=== PATIENT | male | born 1945 | race Caucasian/White ===

== ENCOUNTER 2017-12-23 09:40 | Inpatient (IN) | payer MEDICARE, OTHER ==
[~2017-12-23] VITALS: Ht 177.8 cm; Wt 101.4 kg
[~2017-12-23 09:40] MED LIST: ASPI-611 PO; ATOR40TA71 PO; BACL10TA PO; CADE40GE2 TP; CARB15DR95 OP; FERGLU300T PO; FLO0.4C PO; LISI10TA4 PO; METO25TA6 PO; MINE120C3 TP; NITR0.4T48 SL
[2017-12-23] MEDS ORDERED: normal saline 1000ml 1,000 ML IV ONE (10:05)
[2017-12-23 10:18] LABS: BASOPHILS % (AUTO) 0.1 % (0-1); EOSINOPHILS # (AUTO) 0.2 X10'3 (0-0.9); EOSINOPHILS % (AUTO) 1.6 % (0-6); HEMATOCRIT 34.1 % (42.0-52.0); HEMOGLOBIN 11.8 g/dl (14.0-17.9); LYMPHOCYTES # (AUTO) 1.1 X10'3 (1.1-4.8); LYMPHOCYTES % (AUTO) 9.6 % (21-51); MEAN CORPUSCULAR HEMOGLOBIN 29.1 PG (27.0-31.0); MEAN CORPUSCULAR HGB CONC 34.5 % (33.0-36.5); MEAN CORPUSCULAR VOLUME 84.5 FL (78-98); MEAN PLATELET VOLUME 9.1 FL (7.4-10.4); MONOCYTES # (AUTO) 0.9 X10'3 (0-0.9); MONOCYTES % (AUTO) 8.1 % (2-12); NEUTROPHILS # (AUTO) 9.1 X10'3 (1.8-7.7); NEUTROPHILS % (AUTO) 80.6 % (42-75); PLATELET COUNT 229 X10'3 (140-440); RED BLOOD COUNT 4.04 X10'6 (4.70-6.10); RED CELL DISTRIBUTION WIDTH 16.1 % (11.5-14.5); WHITE BLOOD COUNT 11.3 X10'3 (4.5-11.0)
[2017-12-23 10:29] LABS: INR 1.1 INR; PARTIAL THROMBOPLASTIN TIME 29 SECONDS (22-32); PROTHROMBIN TIME 10.9 SECONDS (9.0-12.0)
[2017-12-23 10:34] LABS: ALANINE AMINOTRANSFERASE 318 U/L (12-78); ALBUMIN 1.9 G/DL (3.4-5.0); ALKALINE PHOSPHATASE 845 IU/L (46-116); ANION GAP 12 (8-16); ASPARTATE AMINO TRANSFERASE 630 U/L (10-37); BILIRUBIN,TOTAL 6.2 MG/DL (0.1-1.0); BLOOD UREA NITROGEN 55 MG/DL (7-18); BUN/CREATININE RATIO 10.8 (5.4-32.0); CALCIUM 8.7 MG/DL (8.5-10.1); CHLORIDE 101 MMOL/L (99-107); CREATININE 5.07 MG/DL (0.60-1.10); GLUCOSE 144 MG/DL (70-104); SODIUM 143 MMOL/L (135-145); TOTAL CARBON DIOXIDE 30.5 MMOL/L (24-32); eGFR 11 ML/MIN
[2017-12-23 10:45] LABS: ALBUMIN/GLOBULIN RATIO 0.3 (1.1-1.5); POTASSIUM 4.6 MMOL/L (3.5-5.1); TOTAL PROTEIN 7.4 G/DL (6.4-8.2)
[2017-12-23] MEDS ORDERED: POTA20PA40 PO (11:19)
[2017-12-23] MEDS ORDERED: MAGN500C16 PO (11:19)
[2017-12-23] MEDS ORDERED: PANT-47 PO (11:20)
[2017-12-23] MEDS ORDERED: CHLO25TA2 PO (11:21)
[2017-12-23] MEDS ORDERED: MORP-64 PO ×2 (11:22→11:23)
[2017-12-23] MEDS ORDERED: magnesium 4gm in 100ml NS 100 ML IV PRN (11:35)
[2017-12-23] MEDS ORDERED: potassium Cl 40MEQ/NS 500ml 500 ML IV PRN (11:35)
[2017-12-23] MEDS ORDERED: magnesium Cl slow-release 64mg tablet PO PRN (11:35)
[2017-12-23] MEDS ORDERED: potassium Cl 20 mEq SR tablet PO PRN (11:35)
[2017-12-23] MEDS ORDERED: docusate sod 100mg capsule PO PRN (11:35)
[2017-12-23] MEDS ORDERED: ondansetron/PF 4mg/2ml inj IV PRN (11:35)
[2017-12-23] MEDS ORDERED: magnesium 1gm/100ml D5W IVPB 100 ML IV PRN (11:35)
[2017-12-23] MEDS: normal saline 1000ml 1,000 ML IV SCH ×2 (12:12→12:13)
[2017-12-23] MEDS ORDERED: CefTRIAXone/D5W-Rocephin 1gm 50 ML IV SCH (12:30)
[2017-12-23 14:00] VITALS: BP 130/54
[2017-12-23 20:00] VITALS: BP_SYST 128; BP_SYST 132; BP_DIAS 58; BP_DIAS 60
[2017-12-23] MEDS: heparin, porcine 5000 units/ml vial SQ SCH (20:57)
[2017-12-23] MEDS ORDERED: temazepam 15mg capsule PO PRN (21:00)
[2017-12-23] MEDS: tamsulosin 0.4mg capsule PO SCH (21:01)
[2017-12-24] VITALS (8 sets, daily range): BP systolic 132–151; BP diastolic 55–88
[2017-12-24] MEDS: normal saline 1000ml 1,000 ML IV SCH ×3 (01:23→20:27)
[2017-12-24 05:18] LABS: BASOPHILS % (AUTO) 0.4 % (0-1); EOSINOPHILS # (AUTO) 0.2 X10'3 (0-0.9); EOSINOPHILS % (AUTO) 2.2 % (0-6); HEMATOCRIT 30.7 % (42.0-52.0); HEMOGLOBIN 10.6 g/dl (14.0-17.9); LYMPHOCYTES # (AUTO) 2.1 X10'3 (1.1-4.8); MEAN CORPUSCULAR HEMOGLOBIN 29.2 PG (27.0-31.0); MEAN CORPUSCULAR HGB CONC 34.8 % (33.0-36.5); MEAN PLATELET VOLUME 9.3 FL (7.4-10.4); MONOCYTES # (AUTO) 0.9 X10'3 (0-0.9); MONOCYTES % (AUTO) 8.4 % (2-12); NEUTROPHILS # (AUTO) 7.7 X10'3 (1.8-7.7); PLATELET COUNT 196 X10'3 (140-440); RED BLOOD COUNT 3.65 X10'6 (4.70-6.10); RED CELL DISTRIBUTION WIDTH 16.3 % (11.5-14.5); WHITE BLOOD COUNT 10.9 X10'3 (4.5-11.0)
[2017-12-24 05:23] LABS: ALANINE AMINOTRANSFERASE 276 U/L (12-78); ALBUMIN 1.6 G/DL (3.4-5.0); ALKALINE PHOSPHATASE 683 IU/L (46-116); ANION GAP 9 (8-16); ASPARTATE AMINO TRANSFERASE 505 U/L (10-37); BILIRUBIN,TOTAL 4.8 MG/DL (0.1-1.0); BLOOD UREA NITROGEN 48 MG/DL (7-18); BUN/CREATININE RATIO 10.5 (5.4-32.0); CALCIUM 7.9 MG/DL (8.5-10.1); CHLORIDE 104 MMOL/L (99-107); CREATININE 4.55 MG/DL (0.60-1.10); GLUCOSE 117 MG/DL (70-104); HDL CHOLESTEROL 15 MG/DL (35-60); LDL CHOLESTEROL 56 MG/DL (50-100); MAGNESIUM 2.3 MG/DL (1.5-2.4); POTASSIUM 3.1 MMOL/L (3.5-5.1); SODIUM 142 MMOL/L (135-145); TOTAL CARBON DIOXIDE 28.8 MMOL/L (24-32); eGFR 13 ML/MIN
[2017-12-24 05:26] LABS: ALBUMIN/GLOBULIN RATIO 0.4 (1.1-1.5); CHOL/HDL RATIO 6.7 (0.00-4.99); CHOLESTEROL 100 MG/DL (0-200); TOTAL PROTEIN 6.1 G/DL (6.4-8.2); TRIGLYCERIDES 71 MG/DL (20-135)
[2017-12-24 07:09] LABS: TROPONIN I 0.09 NG/ML (0.0-0.05)
[2017-12-24] MEDS: aspirin 81mg tablet.DR PO SCH (07:16)
[2017-12-24] MEDS: potassium Cl 20 mEq SR tablet PO PRN ×2 (07:17→13:03)
[2017-12-24] MEDS: heparin, porcine 5000 units/ml vial SQ SCH ×2 (07:18→20:25)
[2017-12-24] MEDS ORDERED: pantoprazole 40mg Tablet.DR PO SCH (08:00)
[2017-12-24] MEDS: K and/or MAG REPLACEMENT MC SCH (08:00)
[2017-12-24 08:01] LABS: INR 1.1 INR; PROTHROMBIN TIME 11.2 SECONDS (9.0-12.0)
[2017-12-24 15:23] LABS: ALANINE AMINOTRANSFERASE 275 U/L (12-78); ALBUMIN 1.6 G/DL (3.4-5.0); ALBUMIN/GLOBULIN RATIO 0.4 (1.1-1.5); ALKALINE PHOSPHATASE 726 IU/L (46-116); ANION GAP 9 (8-16); ASPARTATE AMINO TRANSFERASE 534 U/L (10-37); BLOOD UREA NITROGEN 48 MG/DL (7-18); BUN/CREATININE RATIO 11.1 (5.4-32.0); CHLORIDE 103 MMOL/L (99-107); CREATININE 4.31 MG/DL (0.60-1.10); GLUCOSE 151 MG/DL (70-104); POTASSIUM 3.1 MMOL/L (3.5-5.1); SODIUM 140 MMOL/L (135-145); TOTAL CARBON DIOXIDE 27.9 MMOL/L (24-32); TOTAL PROTEIN 6.1 G/DL (6.4-8.2); eGFR 14 ML/MIN
[2017-12-24] MEDS: potassium Cl 40MEQ/NS 500ml 500 ML IV PRN (20:26)
[2017-12-24] MEDS: tamsulosin 0.4mg capsule PO SCH (20:41)
[2017-12-24] MEDS: nystatin 15 GM powder TP SCH (20:43)
[2017-12-25] VITALS (27 sets, daily range): BP systolic 115–171; BP diastolic 54–81
[2017-12-25 06:20] LABS: BASOPHILS # (AUTO) 0.1 X10'3 (0-0.2); BASOPHILS % (AUTO) 0.5 % (0-1); EOSINOPHILS # (AUTO) 0.3 X10'3 (0-0.9); EOSINOPHILS % (AUTO) 2.5 % (0-6); HEMATOCRIT 30.5 % (42.0-52.0); HEMOGLOBIN 10.6 g/dl (14.0-17.9); LYMPHOCYTES # (AUTO) 2.1 X10'3 (1.1-4.8); LYMPHOCYTES % (AUTO) 18.9 % (21-51); MEAN CORPUSCULAR HEMOGLOBIN 28.9 PG (27.0-31.0); MEAN CORPUSCULAR HGB CONC 34.7 % (33.0-36.5); MEAN CORPUSCULAR VOLUME 83.4 FL (78-98); MEAN PLATELET VOLUME 9.3 FL (7.4-10.4); MONOCYTES % (AUTO) 8.8 % (2-12); NEUTROPHILS # (AUTO) 7.7 X10'3 (1.8-7.7); NEUTROPHILS % (AUTO) 69.3 % (42-75); PLATELET COUNT 196 X10'3 (140-440); RED BLOOD COUNT 3.66 X10'6 (4.70-6.10); WHITE BLOOD COUNT 11.1 X10'3 (4.5-11.0)
[2017-12-25 06:23] LABS: INR 1.1 INR; PROTHROMBIN TIME 11.4 SECONDS (9.0-12.0)
[2017-12-25 06:39] LABS: ALANINE AMINOTRANSFERASE 267 U/L (12-78); ALBUMIN 1.6 G/DL (3.4-5.0); ALKALINE PHOSPHATASE 693 IU/L (46-116); ANION GAP 11 (8-16); ASPARTATE AMINO TRANSFERASE 477 U/L (10-37); BILIRUBIN,TOTAL 4.6 MG/DL (0.1-1.0); BLOOD UREA NITROGEN 47 MG/DL (7-18); BUN/CREATININE RATIO 11.7 (5.4-32.0); CALCIUM 8.2 MG/DL (8.5-10.1); CHLORIDE 105 MMOL/L (99-107); CREATININE 4.01 MG/DL (0.60-1.10); GLUCOSE 96 MG/DL (70-104); MAGNESIUM 2.1 MG/DL (1.5-2.4); POTASSIUM 3.3 MMOL/L (3.5-5.1); SODIUM 142 MMOL/L (135-145); TOTAL CARBON DIOXIDE 26.1 MMOL/L (24-32); eGFR 15 ML/MIN
[2017-12-25 06:40] LABS: ALBUMIN/GLOBULIN RATIO 0.4 (1.1-1.5); TOTAL PROTEIN 6.1 G/DL (6.4-8.2)
[2017-12-25] MEDS: K and/or MAG REPLACEMENT MC SCH (07:20)
[2017-12-25] MEDS: aspirin 81mg tablet.DR PO SCH (07:20)
[2017-12-25] MEDS: heparin, porcine 5000 units/ml vial SQ SCH (07:30)
[2017-12-25] MEDS: nystatin 15 GM powder TP SCH ×3 (07:33→22:20)
[2017-12-25] MEDS: potassium Cl 40MEQ/NS 500ml 500 ML IV PRN (08:38)
[2017-12-25] MEDS ORDERED: LORazepam 2 mg/ml vial IV PRN (09:05)
[2017-12-25 12:04] LABS: ALANINE AMINOTRANSFERASE 240 U/L (12-78); ALBUMIN 1.6 G/DL (3.4-5.0); ALBUMIN/GLOBULIN RATIO 0.3 (1.1-1.5); ALKALINE PHOSPHATASE 698 IU/L (46-116); ANION GAP 7 (8-16); ASPARTATE AMINO TRANSFERASE 448 U/L (10-37); BILIRUBIN,TOTAL 4.6 MG/DL (0.1-1.0); BLOOD UREA NITROGEN 48 MG/DL (7-18); BUN/CREATININE RATIO 13.2 (5.4-32.0); CALCIUM 8.4 MG/DL (8.5-10.1); CHLORIDE 106 MMOL/L (99-107); CREATININE 3.65 MG/DL (0.60-1.10); GLUCOSE 101 MG/DL (70-104); POTASSIUM 3.4 MMOL/L (3.5-5.1); SODIUM 140 MMOL/L (135-145); TOTAL CARBON DIOXIDE 27.2 MMOL/L (24-32); TOTAL PROTEIN 6.2 G/DL (6.4-8.2); eGFR 16 ML/MIN
[2017-12-25] MEDS: normal saline 1000ml 1,000 ML IV SCH ×2 (13:34→15:01)
[2017-12-25] MEDS ORDERED: metoprolol tartrate 25mg tablet PO STA (14:44)
[2017-12-25] MEDS ORDERED: MIDAZolam 5mg/5ml vial ONE (16:42)
[2017-12-25] MEDS ORDERED: fentaNYL/PF 50MCG/1 ML 2ML syringe ONE (16:42)
[2017-12-25] MEDS ORDERED: meperidine/PF 100mg/ml syringe ONE (16:42)
[2017-12-25] MEDS ORDERED: diphenhydrAMINE 50 mg/ml inj ONE (16:43)
[2017-12-25] MEDS ORDERED: LIDOcaine Viscous 15ml cup ONE (16:43)
[2017-12-25] MEDS ORDERED: glucagon, human recombinant 1mg kit ONE (16:44)
[2017-12-25] MEDS ORDERED: iohexol 300 MG/1 ML 50ml polymer ONE (16:44)
[2017-12-25] MEDS ORDERED: levoFLOXACIN-Levaquin 500mg/D5 100 ML IV ONE (16:44)
[2017-12-25] MEDS ORDERED: diltiazem 5mg/ml 5ml inj. IV ONE (19:45)
[2017-12-25] MEDS ORDERED: diltiazem-NS 100mg/100ml 100 ML IV SCH ×3 (19:45→22:05)
[2017-12-25] MEDS: tamsulosin 0.4mg capsule PO SCH (22:20)
[2017-12-25] MEDS ORDERED: pantoprazole 40 MG vial IV ONE (22:55)
[2017-12-25] MEDS ORDERED: heparin 10,000 units/1 ML INJ IV PRN (22:55)
[2017-12-26] VITALS (24 sets, daily range): BP systolic 103–146; BP diastolic 39–69
[2017-12-26 00:11] LABS: BASOPHILS % (AUTO) 0.4 % (0-1); EOSINOPHILS # (AUTO) 0.2 X10'3 (0-0.9); EOSINOPHILS % (AUTO) 1.8 % (0-6); HEMATOCRIT 33.8 % (42.0-52.0); HEMOGLOBIN 11.7 g/dl (14.0-17.9); LYMPHOCYTES # (AUTO) 1.9 X10'3 (1.1-4.8); LYMPHOCYTES % (AUTO) 17.1 % (21-51); MEAN CORPUSCULAR HGB CONC 34.6 % (33.0-36.5); MEAN CORPUSCULAR VOLUME 83.9 FL (78-98); MEAN PLATELET VOLUME 10.3 FL (7.4-10.4); MONOCYTES # (AUTO) 0.8 X10'3 (0-0.9); MONOCYTES % (AUTO) 7.1 % (2-12); NEUTROPHILS # (AUTO) 8.4 X10'3 (1.8-7.7); NEUTROPHILS % (AUTO) 73.6 % (42-75); PLATELET COUNT 220 X10'3 (140-440); RED BLOOD COUNT 4.03 X10'6 (4.70-6.10); WHITE BLOOD COUNT 11.4 X10'3 (4.5-11.0)
[2017-12-26 00:56] LABS: INR 1.2 INR; PARTIAL THROMBOPLASTIN TIME 29 SECONDS (22-32); PROTHROMBIN TIME 11.9 SECONDS (9.0-12.0)
[2017-12-26] MEDS ORDERED: aspirin 81mg tab.chew PO ONE (01:15)
[2017-12-26] MEDS ORDERED: diltiazem 30mg tablet PO ONE (01:25)
[2017-12-26 07:05] LABS: BASOPHILS # (AUTO) 0.1 X10'3 (0-0.2); BASOPHILS % (AUTO) 0.4 % (0-1); EOSINOPHILS # (AUTO) 0.3 X10'3 (0-0.9); EOSINOPHILS % (AUTO) 2.2 % (0-6); HEMOGLOBIN 11.1 g/dl (14.0-17.9); LYMPHOCYTES # (AUTO) 3.3 X10'3 (1.1-4.8); MEAN CORPUSCULAR HEMOGLOBIN 29.3 PG (27.0-31.0); MEAN CORPUSCULAR HGB CONC 34.6 % (33.0-36.5); MEAN CORPUSCULAR VOLUME 84.5 FL (78-98); MEAN PLATELET VOLUME 9.4 FL (7.4-10.4); NEUTROPHILS # (AUTO) 9.8 X10'3 (1.8-7.7); NEUTROPHILS % (AUTO) 67.4 % (42-75); PLATELET COUNT 195 X10'3 (140-440); RED BLOOD COUNT 3.79 X10'6 (4.70-6.10); RED CELL DISTRIBUTION WIDTH 15.7 % (11.5-14.5); WHITE BLOOD COUNT 14.5 X10'3 (4.5-11.0)
[2017-12-26 07:15] LABS: INR 1.2 INR; PROTHROMBIN TIME 12.6 SECONDS (9.0-12.0)
[2017-12-26 07:28] LABS: ALANINE AMINOTRANSFERASE 239 U/L (12-78); ALBUMIN 1.5 G/DL (3.4-5.0); ALKALINE PHOSPHATASE 633 IU/L (46-116); ANION GAP 10 (8-16); ASPARTATE AMINO TRANSFERASE 377 U/L (10-37); BILIRUBIN,TOTAL 4.3 MG/DL (0.1-1.0); BLOOD UREA NITROGEN 48 MG/DL (7-18); BUN/CREATININE RATIO 14.1 (5.4-32.0); CALCIUM 8.9 MG/DL (8.5-10.1); CHLORIDE 108 MMOL/L (99-107); CREATININE 3.41 MG/DL (0.60-1.10); GLUCOSE 78 MG/DL (70-104); MAGNESIUM 1.8 MG/DL (1.5-2.4); POTASSIUM 3.9 MMOL/L (3.5-5.1); SODIUM 144 MMOL/L (135-145); TOTAL CARBON DIOXIDE 26.4 MMOL/L (24-32); eGFR 18 ML/MIN
[2017-12-26 07:38] LABS: ALBUMIN/GLOBULIN RATIO 0.3 (1.1-1.5); TOTAL PROTEIN 6.2 G/DL (6.4-8.2)
[2017-12-26] MEDS: K and/or MAG REPLACEMENT MC SCH (08:00)
[2017-12-26] MEDS: normal saline 1000ml 1,000 ML IV SCH ×2 (08:08→16:45)
[2017-12-26] MEDS: pantoprazole 40 MG vial IV SCH ×2 (08:13→20:54)
[2017-12-26] MEDS: diltiazem 30mg tablet PO SCH ×2 (08:14→20:55)
[2017-12-26] MEDS: aspirin 81mg tab.chew PO SCH (08:14)
[2017-12-26] MEDS: nystatin 15 GM powder TP SCH ×3 (08:14→21:03)
[2017-12-26 09:31] LABS: POTASSIUM 3.5 MMOL/L (3.5-5.1)
[2017-12-26 09:50] LABS: TROPONIN I 14.36 NG/ML (0.0-0.05)
[2017-12-26 10:12] LABS: CREATININE 3.29 MG/DL (0.60-1.10)
[2017-12-26] MEDS: tirofiban 5mg in NS 100mL 100 ML IV SCH ×2 (11:22→16:41)
[2017-12-26] MEDS: tamsulosin 0.4mg capsule PO SCH (20:54)
[2017-12-27] MEDS: tirofiban 5mg in NS 100mL 100 ML IV SCH (00:53)
[2017-12-27 03:00] VITALS: BP 132/54
[2017-12-27 04:57] LABS: BASOPHILS % (AUTO) 0.2 % (0-1); EOSINOPHILS # (AUTO) 0.3 X10'3 (0-0.9); EOSINOPHILS % (AUTO) 2.5 % (0-6); HEMATOCRIT 29.1 % (42.0-52.0); LYMPHOCYTES # (AUTO) 1.5 X10'3 (1.1-4.8); LYMPHOCYTES % (AUTO) 13.4 % (21-51); MEAN CORPUSCULAR HEMOGLOBIN 29.2 PG (27.0-31.0); MEAN CORPUSCULAR HGB CONC 34.3 % (33.0-36.5); MEAN PLATELET VOLUME 9.2 FL (7.4-10.4); MONOCYTES # (AUTO) 0.9 X10'3 (0-0.9); MONOCYTES % (AUTO) 8.1 % (2-12); NEUTROPHILS # (AUTO) 8.6 X10'3 (1.8-7.7); NEUTROPHILS % (AUTO) 75.8 % (42-75); PLATELET COUNT 160 X10'3 (140-440); RED BLOOD COUNT 3.42 X10'6 (4.70-6.10); WHITE BLOOD COUNT 11.4 X10'3 (4.5-11.0)
[2017-12-27 05:06] LABS: INR 1.3 INR; PROTHROMBIN TIME 13.4 SECONDS (9.0-12.0)
[2017-12-27] MEDS: normal saline 1000ml 1,000 ML IV SCH ×2 (05:15→19:12)
[2017-12-27 05:19] LABS: ALANINE AMINOTRANSFERASE 218 U/L (12-78); ALBUMIN 1.5 G/DL (3.4-5.0); ALKALINE PHOSPHATASE 792 IU/L (46-116); ANION GAP 8 (8-16); ASPARTATE AMINO TRANSFERASE 380 U/L (10-37); BILIRUBIN,TOTAL 6.5 MG/DL (0.1-1.0); BLOOD UREA NITROGEN 48 MG/DL (7-18); BUN/CREATININE RATIO 15.9 (5.4-32.0); CALCIUM 8.2 MG/DL (8.5-10.1); CHLORIDE 107 MMOL/L (99-107); CREATININE 3.02 MG/DL (0.60-1.10); GLUCOSE 113 MG/DL (70-104); MAGNESIUM 1.5 MG/DL (1.5-2.4); SODIUM 141 MMOL/L (135-145); TOTAL CARBON DIOXIDE 26.5 MMOL/L (24-32); eGFR 20 ML/MIN
[2017-12-27 05:23] LABS: ALBUMIN/GLOBULIN RATIO 0.3 (1.1-1.5); POTASSIUM 3.9 MMOL/L (3.5-5.1); TOTAL PROTEIN 5.8 G/DL (6.4-8.2)
[2017-12-27 06:00] VITALS: BP 143/60
[2017-12-27] MEDS: K and/or MAG REPLACEMENT MC SCH (08:00)
[2017-12-27] MEDS: pantoprazole 40 MG vial IV SCH ×2 (08:19→20:00)
[2017-12-27] MEDS: diltiazem 30mg tablet PO SCH (08:19)
[2017-12-27] MEDS: aspirin 81mg tab.chew PO SCH (08:19)
[2017-12-27] MEDS: nystatin 15 GM powder TP SCH ×3 (08:23→21:00)
[2017-12-27 10:30] LABS: TOTAL VOLUME 24HRS,URINE 1750 ML
[2017-12-27 11:00] VITALS: BP 144/56
[2017-12-27] MEDS ORDERED: nitroGLYCERIN 0.4mg SUBLingual tab SL PRN (11:35)
[2017-12-27 15:00] VITALS: BP 134/56
[2017-12-27 18:00] VITALS: BP 132/59
[2017-12-27] MEDS: tamsulosin 0.4mg capsule PO SCH (20:20)
[2017-12-27] MEDS: metoprolol tartrate 25mg tablet PO SCH (20:21)
[2017-12-27 22:00] VITALS: BP 139/56
[2017-12-28 01:58] LABS: INR 1.4 INR; PROTHROMBIN TIME 14.1 SECONDS (9.0-12.0)
[2017-12-28 02:00] VITALS: BP 117/54
[2017-12-28 02:00] LABS: BASOPHILS % (AUTO) 0.2 % (0-1); EOSINOPHILS % (AUTO) 0 % (0-6); HEMATOCRIT 25.9 % (42.0-52.0); HEMOGLOBIN 8.8 g/dl (14.0-17.9); LYMPHOCYTES # (AUTO) 1.9 X10'3 (1.1-4.8); LYMPHOCYTES % (AUTO) 15.2 % (21-51); MEAN CORPUSCULAR HEMOGLOBIN 29.2 PG (27.0-31.0); MEAN CORPUSCULAR HGB CONC 34.1 % (33.0-36.5); MEAN CORPUSCULAR VOLUME 85.6 FL (78-98); MEAN PLATELET VOLUME 9.8 FL (7.4-10.4); MONOCYTES # (AUTO) 0.9 X10'3 (0-0.9); MONOCYTES % (AUTO) 7.6 % (2-12); NEUTROPHILS # (AUTO) 9.4 X10'3 (1.8-7.7); PLATELET COUNT 155 X10'3 (140-440); RED BLOOD COUNT 3.02 X10'6 (4.70-6.10); RED CELL DISTRIBUTION WIDTH 15.3 % (11.5-14.5); WHITE BLOOD COUNT 12.2 X10'3 (4.5-11.0)
[2017-12-28 02:02] LABS: ALANINE AMINOTRANSFERASE 248 U/L (12-78); ALBUMIN 1.4 G/DL (3.4-5.0); ALKALINE PHOSPHATASE 688 IU/L (46-116); ANION GAP 9 (8-16); ASPARTATE AMINO TRANSFERASE 392 U/L (10-37); BILIRUBIN,TOTAL 6.4 MG/DL (0.1-1.0); BLOOD UREA NITROGEN 53 MG/DL (7-18); BUN/CREATININE RATIO 18.1 (5.4-32.0); CHLORIDE 107 MMOL/L (99-107); CREATININE 2.93 MG/DL (0.60-1.10); GLUCOSE 128 MG/DL (70-104); MAGNESIUM 1.5 MG/DL (1.5-2.4); SODIUM 142 MMOL/L (135-145); TOTAL CARBON DIOXIDE 26.2 MMOL/L (24-32); eGFR 21 ML/MIN
[2017-12-28 02:17] LABS: ALBUMIN/GLOBULIN RATIO 0.3 (1.1-1.5); POTASSIUM 3.3 MMOL/L (3.5-5.1); TOTAL PROTEIN 5.6 G/DL (6.4-8.2)
[2017-12-28 06:00] VITALS: BP 136/67
[2017-12-28] MEDS: K and/or MAG REPLACEMENT MC SCH (08:00)
[2017-12-28] MEDS ORDERED: potassium Cl 20 mEq SR tablet PO STA (09:26)
[2017-12-28] MEDS: metoprolol tartrate 25mg tablet PO SCH ×2 (09:31→20:15)
[2017-12-28] MEDS: aspirin 81mg tab.chew PO SCH (09:31)
[2017-12-28] MEDS: pantoprazole 40 MG vial IV SCH ×2 (09:31→20:15)
[2017-12-28] MEDS: nystatin 15 GM powder TP SCH ×3 (09:31→20:22)
[2017-12-28] MEDS: normal saline 1000ml 1,000 ML IV SCH (09:34)
[2017-12-28 11:00] VITALS: BP 120/53
[2017-12-28 15:00] VITALS: BP 112/46
[2017-12-28 16:04] LABS: HBSAG SCREEN Negative (Negative); HEP B CORE AB, IGM Negative (Negative); HEPATITIS C ANTIBODY <0.1 s/co ratio (0.0-0.9)
[2017-12-28] MEDS: Potassium Cl inj 20 MEQ in normal saline 1000ml 990 ML IV SCH (18:43)
[2017-12-28 19:00] VITALS: BP 130/57
[2017-12-28] MEDS: tamsulosin 0.4mg capsule PO SCH (20:15)
[2017-12-28 23:00] VITALS: BP 123/48
[2017-12-29] VITALS (10 sets, daily range): BP systolic 82–152; BP diastolic 42–72
[2017-12-29 01:38] LABS: BASOPHILS # (AUTO) 0.1 X10'3 (0-0.2); BASOPHILS % (AUTO) 0.5 % (0-1); EOSINOPHILS # (AUTO) 0.5 X10'3 (0-0.9); HEMOGLOBIN 7.1 g/dl (14.0-17.9); LYMPHOCYTES # (AUTO) 3.8 X10'3 (1.1-4.8); LYMPHOCYTES % (AUTO) 29.7 % (21-51); MEAN CORPUSCULAR HEMOGLOBIN 29.4 PG (27.0-31.0); MEAN CORPUSCULAR VOLUME 86.5 FL (78-98); MEAN PLATELET VOLUME 10.5 FL (7.4-10.4); MONOCYTES % (AUTO) 7.5 % (2-12); NEUTROPHILS # (AUTO) 7.3 X10'3 (1.8-7.7); NEUTROPHILS % (AUTO) 58.3 % (42-75); PLATELET COUNT 138 X10'3 (140-440); RED CELL DISTRIBUTION WIDTH 14.9 % (11.5-14.5); WHITE BLOOD COUNT 12.7 X10'3 (4.5-11.0)
[2017-12-29 01:42] LABS: INR 1.4 INR; PROTHROMBIN TIME 14.3 SECONDS (9.0-12.0)
[2017-12-29 01:47] LABS: ALANINE AMINOTRANSFERASE 216 U/L (12-78); ALBUMIN 1.4 G/DL (3.4-5.0); ALKALINE PHOSPHATASE 518 IU/L (46-116); ANION GAP 9 (8-16); ASPARTATE AMINO TRANSFERASE 267 U/L (10-37); BILIRUBIN,TOTAL 3.5 MG/DL (0.1-1.0); BLOOD UREA NITROGEN 68 MG/DL (7-18); BUN/CREATININE RATIO 24.7 (5.4-32.0); CALCIUM 7.7 MG/DL (8.5-10.1); CHLORIDE 108 MMOL/L (99-107); CREATININE 2.75 MG/DL (0.60-1.10); GLUCOSE 119 MG/DL (70-104); MAGNESIUM 1.4 MG/DL (1.5-2.4); POTASSIUM 3.4 MMOL/L (3.5-5.1); SODIUM 142 MMOL/L (135-145); TOTAL CARBON DIOXIDE 24.7 MMOL/L (24-32); eGFR 23 ML/MIN
[2017-12-29 01:54] LABS: TROPONIN I 1.91 NG/ML (0.0-0.05)
[2017-12-29 02:04] LABS: HEMATOCRIT 20.8 % (42.0-52.0)
[2017-12-29 02:17] LABS: ALBUMIN/GLOBULIN RATIO 0.4 (1.1-1.5); TOTAL PROTEIN 5.2 G/DL (6.4-8.2)
[2017-12-29] MEDS ORDERED: normal saline 1000ml 1,000 ML IVB ONE ×2 (02:35→04:03)
[2017-12-29] MEDS ORDERED: diltiazem 5mg/ml 5ml inj. IV ONE (03:00)
[2017-12-29] MEDS ORDERED: amiodarone 150mg/dext, iso-os 100 ML IV ONE (04:10)
[2017-12-29 04:20] LABS: ABG BASE EXCESS -5.7 mmol/L (-2.0-3.0); ABG HCO3 18.5 mmol/L (22.0-26.0); ABG OXYGEN SATURATION 96.4 % (95-98); ABG PCO2 (T) 30.9 mmHg (35.0-48.0); ABG PH (T) 7.394 (7.350-7.450); ALLEN'S TEST Positive; FCOHb 0.2 % (0.5-1.5); FLOW 2 L/min; FMetHb 0.2 % (0.3-1.12); TOTAL HEMOGLOBIN 8.9 G/dl (14.0-18.0)
[2017-12-29 06:00] LABS: ALANINE AMINOTRANSFERASE 204 U/L (12-78); ALBUMIN 1.4 G/DL (3.4-5.0); ALKALINE PHOSPHATASE 490 IU/L (46-116); ANION GAP 12 (8-16); ASPARTATE AMINO TRANSFERASE 244 U/L (10-37); BASOPHILS # (AUTO) 0.1 X10'3 (0-0.2); BASOPHILS % (AUTO) 0.6 % (0-1); BILIRUBIN,TOTAL 3.6 MG/DL (0.1-1.0); BLOOD UREA NITROGEN 64 MG/DL (7-18); BUN/CREATININE RATIO 24.2 (5.4-32.0); CALCIUM 7.5 MG/DL (8.5-10.1); CHLORIDE 109 MMOL/L (99-107); CREATININE 2.64 MG/DL (0.60-1.10); EOSINOPHILS # (AUTO) 0.4 X10'3 (0-0.9); EOSINOPHILS % (AUTO) 3.6 % (0-6); GLUCOSE 135 MG/DL (70-104); HEMATOCRIT 25.3 % (42.0-52.0); HEMOGLOBIN 8.6 g/dl (14.0-17.9); LYMPHOCYTES # (AUTO) 1.8 X10'3 (1.1-4.8); LYMPHOCYTES % (AUTO) 17.3 % (21-51); MEAN CORPUSCULAR HEMOGLOBIN 29.1 PG (27.0-31.0); MEAN CORPUSCULAR HGB CONC 34.1 % (33.0-36.5); MEAN CORPUSCULAR VOLUME 85.5 FL (78-98); MEAN PLATELET VOLUME 10.5 FL (7.4-10.4); MONOCYTES # (AUTO) 0.9 X10'3 (0-0.9); MONOCYTES % (AUTO) 8.7 % (2-12); NEUTROPHILS # (AUTO) 7.1 X10'3 (1.8-7.7); NEUTROPHILS % (AUTO) 69.8 % (42-75); PLATELET COUNT 132 X10'3 (140-440); POTASSIUM 3.3 MMOL/L (3.5-5.1); RED BLOOD COUNT 2.96 X10'6 (4.70-6.10); RED CELL DISTRIBUTION WIDTH 15.8 % (11.5-14.5); SODIUM 142 MMOL/L (135-145); TOTAL CARBON DIOXIDE 20.7 MMOL/L (24-32); WHITE BLOOD COUNT 10.2 X10'3 (4.5-11.0); eGFR 24 ML/MIN
[2017-12-29 06:04] LABS: MAGNESIUM 1.2 MG/DL (1.5-2.4)
[2017-12-29 06:05] LABS: ALBUMIN/GLOBULIN RATIO 0.4 (1.1-1.5); TOTAL PROTEIN 5.1 G/DL (6.4-8.2)
[2017-12-29 06:43] LABS: TROPONIN I 1.34 NG/ML (0.0-0.05)
[2017-12-29] MEDS: pantoprazole 40 MG vial IV SCH (07:19)
[2017-12-29] MEDS: nystatin 15 GM powder TP SCH ×2 (07:22→13:33)
[2017-12-29] MEDS: metoprolol tartrate 25mg tablet PO SCH (07:22)
[2017-12-29] MEDS: aspirin 81mg tab.chew PO SCH (07:57)
[2017-12-29] MEDS: K and/or MAG REPLACEMENT MC SCH (08:00)
[2017-12-29] MEDS ORDERED: albumin (Human) 5% 250 ML IV solution IV ONE (08:00)
[2017-12-29] MEDS: Potassium Cl inj 20 MEQ in normal saline 1000ml 990 ML IV SCH (10:28)
[2017-12-29] MEDS: pantoprazole 40MG/NS 100ML BAG 100 ML IV SCH ×3 (10:28→18:23)
[2017-12-29] MEDS ORDERED: magnesium Cl slow-release 64mg tablet PO PRN (10:55)
[2017-12-29] MEDS ORDERED: potassium Cl 40MEQ/NS 500ml 500 ML IV PRN ×2 (10:55)
[2017-12-29] MEDS ORDERED: magnesium 4gm in 100ml NS 100 ML IV ONE (10:55)
[2017-12-29] MEDS ORDERED: potassium Cl 20 mEq SR tablet PO PRN ×2 (10:55)
[2017-12-29] MEDS ORDERED: magnesium 4gm in 100ml NS 100 ML IV PRN (10:55)
[2017-12-29 11:07] LABS: BASOPHILS % (AUTO) 0.3 % (0-1); EOSINOPHILS # (AUTO) 0.4 X10'3 (0-0.9); EOSINOPHILS % (AUTO) 2.9 % (0-6); HEMATOCRIT 25.1 % (42.0-52.0); HEMOGLOBIN 8.5 g/dl (14.0-17.9); LYMPHOCYTES # (AUTO) 2.2 X10'3 (1.1-4.8); LYMPHOCYTES % (AUTO) 17.9 % (21-51); MEAN CORPUSCULAR HGB CONC 33.8 % (33.0-36.5); MEAN CORPUSCULAR VOLUME 85.8 FL (78-98); MEAN PLATELET VOLUME 9.7 FL (7.4-10.4); MONOCYTES % (AUTO) 8.4 % (2-12); NEUTROPHILS # (AUTO) 8.5 X10'3 (1.8-7.7); NEUTROPHILS % (AUTO) 70.5 % (42-75); PLATELET COUNT 141 X10'3 (140-440); RED BLOOD COUNT 2.92 X10'6 (4.70-6.10); RED CELL DISTRIBUTION WIDTH 15.9 % (11.5-14.5); WHITE BLOOD COUNT 12.1 X10'3 (4.5-11.0)
[2017-12-29 11:32] LABS: ANISOCYTOSIS 1+; PLATELET ESTIMATE NORMAL; TOTAL CELLS COUNTED 100
[2017-12-29 11:33] LABS: TOXIC GRANULATION 1+
[2017-12-29 17:06] LABS: BASOPHILS # (AUTO) 0.1 X10'3 (0-0.2); BASOPHILS % (AUTO) 0.4 % (0-1); EOSINOPHILS # (AUTO) 0.3 X10'3 (0-0.9); EOSINOPHILS % (AUTO) 2.3 % (0-6); HEMATOCRIT 24.7 % (42.0-52.0); HEMOGLOBIN 8.4 g/dl (14.0-17.9); LYMPHOCYTES # (AUTO) 2.4 X10'3 (1.1-4.8); LYMPHOCYTES % (AUTO) 18.1 % (21-51); MEAN CORPUSCULAR HEMOGLOBIN 28.9 PG (27.0-31.0); MEAN CORPUSCULAR HGB CONC 34.1 % (33.0-36.5); MEAN CORPUSCULAR VOLUME 84.8 FL (78-98); MEAN PLATELET VOLUME 9.8 FL (7.4-10.4); MONOCYTES % (AUTO) 7.9 % (2-12); NEUTROPHILS # (AUTO) 9.4 X10'3 (1.8-7.7); NEUTROPHILS % (AUTO) 71.3 % (42-75); PLATELET COUNT 163 X10'3 (140-440); RED BLOOD COUNT 2.91 X10'6 (4.70-6.10); RED CELL DISTRIBUTION WIDTH 16.3 % (11.5-14.5); WHITE BLOOD COUNT 13.2 X10'3 (4.5-11.0)
[2017-12-29 18:24] LABS: ALANINE AMINOTRANSFERASE 201 U/L (12-78); ALBUMIN 1.7 G/DL (3.4-5.0); ALKALINE PHOSPHATASE 503 IU/L (46-116); ANION GAP 13 (8-16); ASPARTATE AMINO TRANSFERASE 330 U/L (10-37); BILIRUBIN,TOTAL 3.9 MG/DL (0.1-1.0); BLOOD UREA NITROGEN 64 MG/DL (7-18); BUN/CREATININE RATIO 27.6 (5.4-32.0); CALCIUM 7.9 MG/DL (8.5-10.1); CHLORIDE 111 MMOL/L (99-107); CREATININE 2.32 MG/DL (0.60-1.10); GLUCOSE 124 MG/DL (70-104); MAGNESIUM 2.1 MG/DL (1.5-2.4); POTASSIUM 3.4 MMOL/L (3.5-5.1); SODIUM 145 MMOL/L (135-145); TOTAL CARBON DIOXIDE 21.2 MMOL/L (24-32); eGFR 28 ML/MIN
[2017-12-29 18:33] LABS: ALBUMIN/GLOBULIN RATIO 0.4 (1.1-1.5); TOTAL PROTEIN 5.5 G/DL (6.4-8.2)
[2017-12-29] MEDS ORDERED: metoprolol tartrate 12.5mg (1/2 tablet) PO SCH (20:00)
[2017-12-30 05:20] LABS: PROTEIN,TOTAL,URINE 47.2 mg/dL (Not Estab.)
== END 2017-12-29 20:59 | disposition short-term general hospital (02) | DRG 441 ==
LOC: ER 09:41 → ED HOLD 11:34 → SUR 3N 13:54 → PCU 3S 12-25 20:03
PROVIDERS: ADMIT Internal Medicine; ATTEND Internal Medicine
PROC: 0F798DZ Dilation of Common Bile Duct with Intraluminal Device, Via Natural or Artificial Opening Endoscopic (ICD-10-PCS; principal; 2017-12-25)
PROC: BF101ZZ Fluoroscopy of Bile Ducts using Low Osmolar Contrast (ICD-10-PCS; 2017-12-25)
PROC: 30233N1 Transfusion of Nonautologous Red Blood Cells into Peripheral Vein, Percutaneous Approach (ICD-10-PCS; 2017-12-29)
DX: K72.00 Acute and subacute hepatic failure without coma (principal); I21.4 Non-ST elevation (NSTEMI) myocardial infarction; K80.51 Calculus of bile duct without cholangitis or cholecystitis with obstruction; N17.9 Acute kidney failure, unspecified; I13.0 Hypertensive heart and chronic kidney disease with heart failure and stage 1 through stage 4 chronic kidney disease, or unspecified chronic kidney disease; K92.1 Melena; I42.0 Dilated cardiomyopathy; I47.2 Ventricular tachycardia; D64.9 Anemia, unspecified; D72.829 Elevated white blood cell count, unspecified; E78.5 Hyperlipidemia, unspecified; G47.30 Sleep apnea, unspecified; I25.10 Atherosclerotic heart disease of native coronary artery without angina pectoris; I48.0 Paroxysmal atrial fibrillation; E87.6 Hypokalemia; I50.9 Heart failure, unspecified; K21.9 Gastro-esophageal reflux disease without esophagitis; K59.00 Constipation, unspecified; E66.9 Obesity, unspecified; K72.10 Chronic hepatic failure without coma; M19.90 Unspecified osteoarthritis, unspecified site; G62.9 Polyneuropathy, unspecified; G89.29 Other chronic pain; M54.9 Dorsalgia, unspecified; N18.9 Chronic kidney disease, unspecified; N40.0 Benign prostatic hyperplasia without lower urinary tract symptoms; Z96.641 Presence of right artificial hip joint; R31.0 Gross hematuria; Z96.651 Presence of right artificial knee joint; Z95.1 Presence of aortocoronary bypass graft; Z90.49 Acquired absence of other specified parts of digestive tract; Z79.899 Other long term (current) drug therapy; Z79.82 Long term (current) use of aspirin; Z87.891 Personal history of nicotine dependence; Z82.49 Family history of ischemic heart disease and other diseases of the circulatory system; Z82.5 Family history of asthma and other chronic lower respiratory diseases; Z68.32 Body mass index [BMI] 32.0-32.9, adult
CPT/HCPCS: 36415; 36600; 43274; 71045; 74181; 76700; 80053; 80061; 82575; 82803; 83735; 83880; 83930; 84132; 84156; 84166; 84300; 84484; 85018; 85025; 85610; 85730; 86705; 86706; 86709; 86803; 86885; 86900; 86901; 86920; 87070; 87207; 87340; 93005; 93306; 97110; 97161; 97530; A4315; A4620; A6212; A6213; A6250; C9113; G0500; J0282; J0696; J1200; J1610; J1644; J1956; J2060; J2175; J2250; J3010; J3246; J3475; J3480; J3490; J7030; P9016; P9045; Q9967

== ENCOUNTER 2018-08-09 11:08 | Outpatient (CLI) | payer OTHER, MEDICARE ==
[~2018-08-09 11:08] MED LIST changes: -CADE40GE2 TP; +CHLO25TA2 PO; +MAGN500C16 PO; +MORP-64 PO; +PANT-47 PO; +POTA20PA40 PO
[2018-08-09] MEDS ORDERED: APIX5TAB3 PO (12:03)
[2018-08-09] MEDS ORDERED: CLOP75TA33 PO (12:03)
[2018-08-09] MEDS ORDERED: METO100T7 PO (12:03)
[2018-08-09 13:02] LABS: BASOPHILS # (AUTO) 0.1 X10'3 (0-0.2); BASOPHILS % (AUTO) 0.8 % (0-1); EOSINOPHILS # (AUTO) 0.3 X10'3 (0-0.9); EOSINOPHILS % (AUTO) 3.8 % (0-6); LYMPHOCYTES % (AUTO) 28.2 % (21-51); MEAN CORPUSCULAR HEMOGLOBIN 29.2 PG (27.0-31.0); MEAN CORPUSCULAR VOLUME 88.6 FL (78-98); MEAN PLATELET VOLUME 8.7 FL (7.4-10.4); MONOCYTES # (AUTO) 0.7 X10'3 (0-0.9); MONOCYTES % (AUTO) 9.4 % (2-12); NEUTROPHILS # (AUTO) 4.1 X10'3 (1.8-7.7); NEUTROPHILS % (AUTO) 57.8 % (42-75); PRE OP HEMATOCRIT 40.8 % (42.0-52.0); PRE OP HEMOGLOBIN 13.4 g/dL (14.0-17.9); PRE OP PLATELET COUNT 177 X10'3 (140-440); RED BLOOD COUNT 4.61 X10'6 (4.70-6.10); RED CELL DISTRIBUTION WIDTH 15.7 % (11.5-14.5)
[2018-08-09 13:10] LABS: PRE OP PROTIME 10.1 SECONDS (9.0-12.0)
[2018-08-09 13:18] LABS: ALBUMIN 3.3 G/DL (3.4-5.0); ALBUMIN/GLOBULIN RATIO 0.9 (1.1-1.5); ALKALINE PHOSPHATASE 106 IU/L (46-116); BLOOD UREA NITROGEN 22 MG/DL (7-18); BUN/CREATININE RATIO 12.2 (5.4-32.0); CALCIUM 9.1 MG/DL (8.5-10.1); CHLORIDE 105 MMOL/L (99-107); CREATININE 1.81 MG/DL (0.60-1.10); PRE OP ALT 30 U/L (30-65); PRE OP ANION GAP 8 (8-16); PRE OP AST 22 U/L (10-37); PRE OP BILIRUB, TOTAL 0.6 MG/DL (0.0-1.0); PRE OP GLUCOSE 94 MG/DL (70-104); PRE OP POTASSIUM 4.5 MMOL/L (3.4-5.1); PRE OP SODIUM 140 MMOL/L (135-145); TOTAL CARBON DIOXIDE 27.1 MMOL/L (24-32); eGFR 37 ML/MIN
== END 2018-08-09 23:59 | disposition home or self-care (01) ==
LOC: PRE-OP 11:08 → EDSTATUS 08-17 08:30
PROVIDERS: ATTEND Orthopaedic Surgery
DX: Z01.818 Encounter for other preprocedural examination (principal); M16.12 Unilateral primary osteoarthritis, left hip; I10 Essential (primary) hypertension
CPT/HCPCS: 36415; 80053; 85025; 85610; 85730; 86885; 86900; 86901; 87070; 93005